=== PATIENT | male | born 1995 | race Caucasian/White ===

== ENCOUNTER 2017-04-16 04:15 | Inpatient (IN) | payer OTHER ==
[~2017-04-16] VITALS: Ht 185.4 cm; Wt 83.9 kg
[2017-04-16 04:23] VITALS: BP 125/85
--- NOTE | 2017-04-16 04:27 | NUR ---
Patient ambulated to bed 04.
--- NOTE | 2017-04-16 04:31 | NUR ---
PATIENT PRESENTS TO ED WITH C/O RLQ ABD PAIN WITH NAUSEA AND PT DENIES VOMITTING PT SKIN IS PINK/WARM/DRY; AAOX4 WITH EVEN AND STEADY GAIT; LUNGS CLEAR BL; HR EVEN AND REGULAR; PT DENIES ANY FEVER, CP, SOB, OR COUGH AT THIS TIME; PATIENT STATES PAIN OF 6/10 AT THIS TIME; VSS; PATIENT POSITIONED FOR COMFORT; HOB ELEVATED; BEDRAILS UP X2; BED DOWN. ER MD MADE AWARE OF PT STATUS.
[2017-04-16] MEDS ORDERED: NACL 0.9% 1,000 ML IV SCH ×2 (05:07→07:03)
[2017-04-16] MEDS ORDERED: ONDANSETRON 4 MG/2 ML VIAL IVP ONE (05:10)
[2017-04-16] MEDS ORDERED: MORPHINE SULFATE 2 MG/ML SYR IVP ONE (05:10)
--- NOTE | 2017-04-16 05:32 | NUR ---
US BEING DONE AT BEDSIDE
[2017-04-16 06:19] LABS: HEMOGLOBIN 15.3 g/dL (12.0-18.0)
[2017-04-16 06:22] LABS: APPEARANCE,URINE CLEAR (CLEAR); BILIRUBIN,URINE NEGATIVE (NEGATIVE); BLOOD, URINE NEGATIVE (NEGATIVE); COLOR,URINE YELLOW (YELLOW); LEUKOCYTE ESTERASE ,URINE NEGATIVE (NEGATIVE); NITRITE, URINE NEGATIVE (NEGATIVE); UGLUCOSE NEGATIVE (NEGATIVE)
--- NOTE | 2017-04-16 06:25 | NUR ---
PT TO CT VIA WC IN STABLE CONDITION
[2017-04-16 06:26] LABS: HEMATOCRIT 46.1 % (36-52); MEAN CORPUSCULAR HEMOGLOBIN 30 pg (27-31); MEAN CORPUSCULAR HGB CONC 33 g/dL (33-37); MEAN CORPUSCULAR VOLUME 89 fL (80-94); PLATELET COUNT (AUTO) 192 K/uL (140-450); RED BLOOD CELL COUNT(AUTO) 5.16 MIL/uL (4.20-6.10); RED CELL DISTRIBUTION WIDTH 12.2 % (11.6-13.7); WHITE BLOOD COUNT (AUTO) 7.7 K/uL (4.8-10.8)
[2017-04-16 06:36] LABS: LYMPHOCYTES % (MANUAL) 31 % (20-46); MONOCYTES % (MANUAL) 6 % (5-12)
[2017-04-16 06:37] LABS: ALBUMIN 4.1 g/dL (3.4-5.0); ANION GAP 12.2 (8-16); CARBON DIOXIDE 27.4 mmol/L (21-32); CREATININE 0.7 mg/dL (0.7-1.3); POTASSIUM 3.6 mmol/L (3.5-5.1)
--- NOTE | 2017-04-16 06:37 | NUR ---
Patient back from CT via wheelchair.
[2017-04-16] MEDS ORDERED: PIPERACILLIN/TAZOBACTAM 3.375 GM in DEXTROSE 5% 50 ML IV ONE (06:40)
[2017-04-16] MEDS ORDERED: ACETAMINOPHEN 325 MG TAB PO PRN (07:05)
[2017-04-16] MEDS ORDERED: ONDANSETRON 4 MG/2 ML VIAL IVP PRN (07:05)
[2017-04-16] MEDS ORDERED: HYDROcodone/APAP 7.5/325 MG 1 TAB PO PRN (07:05)
--- NOTE | 2017-04-16 07:13 | NUR ---
per DR LOUIS, NO BC NEEDED AT TIME.
--- NOTE | 2017-04-16 07:15 | NUR ---
REPORT TO ALDEN DEY
[2017-04-16] MEDS ORDERED: PIPERACILLIN/TAZOBACTAM 3.375 GM VIAL IV ONE (07:19)
--- NOTE | 2017-04-16 07:36 | NUR ---
X RAY AT BEDSIDE.
--- NOTE | 2017-04-16 07:41 | NUR ---
Patient will be admitted to care of DR MONTES DE OCA. Admited to TELE. Will go to room 110 B. Belongings list completed. Report to MYRA RUANO.
[2017-04-16 08:12] LABS: BARBITURATE, URINE NEG. ng/ml (NEG <=200); BENZODIAZEPINE, URINE NEG. ng/mL (NEG <=200); CANNABINOID, URINE NEG. ng/mL (NEG <=50); COCAINE, URINE NEG. ng/mL (NEG <=300); OPIATE, URINE NEG. ng/mL (NEG <=2000); PHENCYCLIDINE SCREEN,URINE NEG. ng/mL (NEG <=25)
[2017-04-16] MEDS ORDERED: HYDROmorphone 1 MG/ML AMP IVP PRN (08:20)
[2017-04-16 08:45] LABS: MAGNESIUM 1.8 mg/dL (1.8-2.4); PHOSPHORUS 3.6 mg/dL (2.5-4.9)
[2017-04-16 08:46] LABS: FREE T4 (FREE THYROXINE) 1.1 ng/dL (0.76-1.46); THYROID STIMULATING HORMONE 2.83 uIU/mL (0.34-3.74)
[2017-04-16] MEDS ORDERED: LACTOBACILLUS RHAMNOSUS GG 1 EACH CAP PO SCH (09:00)
[2017-04-16] MEDS ORDERED: DOCUSATE SODIUM 100 MG GELCAP PO SCH (09:00)
--- NOTE | 2017-04-16 09:00 | NUR ---
Admitted from ED, with chief complaint of ABDOMINAL PAIN. PT IS A 21 y/o ,Male, Cooperative,oriented to call light, bed, phone,television, bathroom, smoking policy,visiting hours, procedures, ID bracelet on. Belongings list checked.
[2017-04-16 09:05] LABS: PROTHROMBIN TIME 11.2 secs (10.8-13.4)
[2017-04-16 09:10] VITALS: BP 136/64
--- NOTE | 2017-04-16 09:19 | NUR ---
CM NOTE INITIAL REVIEW FAXED TO [facility] [phone] # [phone] [facility] EXT [id number]
--- NOTE | 2017-04-16 09:21 | NUR ---
PATIENT HAS BEEN SCREENED AND CATEGORIZED MODERATE NUTRITION RISK. PATIENT WILL BE SEEN WITHIN 3-5 DAYS OF ADMISSION. 04/18/17-04/20/[address]
--- NOTE | 2017-04-16 10:00 | NUR ---
NPO MAINTAINED. PT VERBALIZED UNDERSTANDING.
--- NOTE | 2017-04-16 10:50 | NUR ---
DR. FLOOD IS HERE TO SEE PT.
--- NOTE | 2017-04-16 11:00 | NUR ---
PRESENT IV INFILTRATED, RESTARTED A NEW IV LINE ON RT FOREARM WITH GAUGE 22.
--- NOTE | 2017-04-16 11:30 | NUR ---
PT WHEELED TO [facility] FOR [facility] SCAN. NPO MAINTAINED.
[2017-04-16 12:00] VITALS: BP 112/65
[2017-04-16] MEDS ORDERED: PIPER/TAZO 3.375GM/D5W PREMIX 50 ML IV SCH (13:00)
--- NOTE | 2017-04-16 13:30 | NUR ---
PT BACK FROM [facility] SCAN IN STABLE CONDITION.
[2017-04-16 16:00] VITALS: BP 132/61
--- NOTE | 2017-04-16 17:02 | NUR ---
PT STATED HE WANTS TO GO AGAINST MEDICAL ADVICE. DR. MELENDEZ SPOKE WITH PT. RISKS EXPLAINED TO PT BY THE PHYSICIAN, PT VERBALIZED UNDERSTANDING.
--- NOTE | 2017-04-16 17:10 | NUR ---
PT SIGNED AMA FORM. ARM BANDS AND IV REMOVED, CANNULA TIP INTACT. PT WALKING OUT FROM MST FLOOR IN STABLE CONDITION. NO C/O PAIN. NO SOB NOTED.
== END 2017-04-16 17:10 | disposition left against medical advice (07) | DRG 247 ==
LOC: MED 04:15 → MTU 07:12
PROVIDERS: ADMIT Family Medicine; ATTEND Family Medicine
DX: K56.41 Fecal impaction (principal); K80.62 Calculus of gallbladder and bile duct with acute cholecystitis without obstruction; K37 Unspecified appendicitis; Z53.21 Procedure and treatment not carried out due to patient leaving prior to being seen by health care provider
CPT/HCPCS: 36415; 71010; 76705; 78445; 80053; 80305; 81003; 82140; 82150; 83036; 83690; 83735; 84100; 84439; 84443; 84484; 85025; 85610; 85730; 87081; 93005; 96361; 96365; 96375; 99285; J2270; J2405; J2543; J7030; J7060; Q0092